=== PATIENT | female | born 1940 | race Caucasian/White ===

== ENCOUNTER 2020-09-06 08:30 | Inpatient (IN) | payer MEDICARE ==
[2020-09-02 11:10] LABS: APPEARANCE,URINE Clear (CLEAR); BILIRUBIN,URINE Negative (NEGATIVE); COLOR,URINE Yellow (YELLOW); GLUCOSE, URINE (UA) Negative (NEGATIVE); KETONES,URINE Negative (NEGATIVE); LEUKOCYTE ESTERASE ,URINE Trace (NEGATIVE); NITRATE,URINE Negative (NEGATIVE); OCCULT BLOOD,URINE Negative (NEGATIVE); PROTEIN,URINE Negative (NEGATIVE); UROBILINOGEN,URINE 0.2 mg/dL (0.2-1.0)
[2020-09-02 11:12] LABS: BASOPHILS % (AUTO) 0.5 % (0.0-5.0); EOSINOPHILS % (AUTO) 3.1 % (0.0-8.0); HEMATOCRIT 36.9 % (36-48); MEAN CORPUSCULAR HEMOGLOBIN 29.1 pg (27.0-33.0); MEAN CORPUSCULAR VOLUME 90.9 fL (79-99); MONOCYTES % (AUTO) 12.3 % (3.0-13.0); NEUTROPHILS % (AUTO) 52.8 % (40.0-77.0); PLATELET COUNT (AUTO) 237 K/uL (130-400); RED BLOOD CELL COUNT(AUTO) 4.06 MIL/uL (4.00-5.50); RED CELL DISTRIBUTION WIDTH 13.4 % (11.0-15.5); WHITE BLOOD COUNT (AUTO) 5.8 K/uL (4.8-10.8)
[2020-09-02 11:14] LABS: CREATININE 0.9 mg/dL (0.5-1.5); POTASSIUM 4.4 mmol/L (3.5-5.1)
[2020-09-02 11:18] LABS: BACTERIA,URINE Rare /HPF (None Seen); RBC,URINE None Seen /HPF (0-1); SQUAMOUS EPITHELIAL CELL,UR Rare /HPF (0-2)
[2020-09-02 11:38] LABS: INR 1.01 (0.85-1.15)
[2020-09-02 13:35] VITALS: BP 137/71
[2020-09-05] MEDS: CEFAZOLIN SODIUM 1 GM VIAL IVP SCH (06:00)
[~2020-09-06] VITALS: Ht 167.6 cm; Wt 73.1 kg
[2020-09-06] VITALS (25 sets, daily range): BP systolic 111–144; BP diastolic 49–75
[~2020-09-06 08:30] MED LIST: ASPI-1197 PO; CETI10CA5 PO; CYAN250014 PO; GENTAMICIN SULFATE 240 MG in 0.9%NACL 100ML 100 ML IV SCH; GLUC100019 PO; L.AC1CAP6 PO; LETR2.5T7 PO; LEVO50TA11 PO; LOSA100T58 PO; MULT-1296 PO; ROSU10TA28 PO; ZOLP5TAB2 PO; calcium PO
[2020-09-06] MEDS ORDERED: LACTATED RINGERS 1000ML 1,000 ML IV ONE (09:29)
[2020-09-06] MEDS ORDERED: SUCCINYLCHOLINE CHLORIDE 20 MG/ML 10 ML VIAL ONE (13:18)
[2020-09-06] MEDS ORDERED: LIDOCAINE PF 100MG/5ML (2%) SYRINGE 5ML ONE (13:18)
[2020-09-06] MEDS ORDERED: ROCURONIUM 10MG/1ML SYR 10 MG/ML ML ONE (13:19)
[2020-09-06] MEDS ORDERED: PROPOFOL 10 MG/ML 20ML VIAL IV ONE (13:19)
[2020-09-06] MEDS ORDERED: ONDANSETRON 4MG INJ ONE (13:19)
[2020-09-06] MEDS ORDERED: NEOSTIGMINE 5MG/5ML SYR IV ONE (13:19)
[2020-09-06] MEDS ORDERED: DEXAMETHASONE SOD PHOSPHATE 10MG/ML 1ML VIAL ONE (13:19)
[2020-09-06] MEDS ORDERED: GLYCOPYRROLATE 1 MG/5 ML SYRINGE ONE (13:19)
[2020-09-06] MEDS ORDERED: CEFAZOLIN SODIUM 1 GM VIAL ONE (13:23)
[2020-09-06] MEDS ORDERED: TRANEXAMIC ACID 1000MG/10ML ONE ×2 (13:24→16:39)
[2020-09-06] MEDS ORDERED: KETOROLAC 15MG/ML VIAL (15MG/ML) ONE (14:00)
[2020-09-06] MEDS ORDERED: ACETAMINOPHEN 500 MG TABLET ONE (14:00)
[2020-09-06] MEDS ORDERED: CELECOXIB 200 MG CAP ONE (14:00)
[2020-09-06] MEDS: CEFAZOLIN SODIUM 1 GM VIAL IVP SCH ×2 (14:26→20:40)
[2020-09-06] MEDS ORDERED: PHENYLEPHRINE HCL 10 MG/ML 1ML VIAL IV ONE (14:38)
[2020-09-06] MEDS ORDERED: EPHEDRINE SULFATE 50 MG/ML AMPULE ONE (14:52)
[2020-09-06] MEDS ORDERED: FENTANYL CITRATE PF 50 MCG/1 ML 2ML VIAL ONE ×2 (15:02→15:34)
[2020-09-06] MEDS ORDERED: CEFAZOLIN SODIUM 1 GM VIAL IRRIG ONE (15:07)
[2020-09-06] MEDS ORDERED: ONDANSETRON 4MG INJ IVP PRN (16:45)
[2020-09-06] MEDS ORDERED: KCL 20 MEQ ERTAB PO PRN (16:45)
[2020-09-06] MEDS ORDERED: LIDOCAINE HCL-MPF 1% 2ML VIAL IV PRN (16:45)
[2020-09-06] MEDS: ACETAMINOPHEN 500 MG TABLET PO SCH (16:45)
[2020-09-06] MEDS ORDERED: FERROUS FUMARATE 324 MG TABLET PO PRN (16:45)
[2020-09-06] MEDS ORDERED: OXYCODONE HCL 5 MG TAB PO PRN ×2 (16:45)
[2020-09-06] MEDS ORDERED: POTASSIUM CHLORIDE 10% ELIXIR 20 MEQ/15 ML UDCUP PO PRN (16:45)
[2020-09-06] MEDS ORDERED: TRAMADOL HCL 50 MG TABLET PO PRN (16:45)
[2020-09-06] MEDS ORDERED: KETOROLAC 15MG/ML VIAL (15MG/ML) IV PRN (16:45)
[2020-09-06] MEDS ORDERED: CALCIUM CARB 500MG PO PRN (16:45)
[2020-09-06] MEDS ORDERED: POTASSIUM CHLORIDE 20MEQ/100ML 100 ML IV PRN (16:45)
[2020-09-06] MEDS ORDERED: DiphenhydrAMINE HCL 50 MG/ML VIAL IVP PRN (16:45)
[2020-09-06] MEDS: 0.9%NACL 1000ML 1,000 ML IV SCH (16:45)
[2020-09-06] MEDS ORDERED: NON-FORMULARY MEDICATION 1 EACH (Cetirizine HCl (Zyrtec) 10 MG) PO SCH (18:15)
[2020-09-06] MEDS: ASPIRIN 81MG CHEW TAB PO SCH (20:29)
[2020-09-06] MEDS: ATORVASTATIN 20 MG TABLET PO SCH (20:30)
[2020-09-06] MEDS: CELECOXIB 200 MG CAP PO SCH (20:30)
[2020-09-06] MEDS: FAMOTIDINE 20MG TAB PO SCH (20:30)
[2020-09-06] MEDS: PREGABALIN 25 MG CAP PO SCH (20:30)
[2020-09-06] MEDS: LOSARTAN 100 MG TABLET PO SCH (20:30)
[2020-09-06] MEDS: ZOLPIDEM TARTRATE 5 MG TAB PO SCH (20:32)
[2020-09-06] MEDS ORDERED: NON-FORMULARY MEDICATION 1 EACH (Rosuvastatin Calcium 10 MG) PO SCH (21:00)
[2020-09-07] MEDS: ACETAMINOPHEN 500 MG TABLET PO SCH ×3 (00:01→16:46)
[2020-09-07] MEDS: 0.9%NACL 1000ML 1,000 ML IV SCH ×2 (02:36→12:13)
[2020-09-07 04:57] VITALS: BP 109/61
[2020-09-07 05:05] LABS: HEMATOCRIT 28.7 % (36-48); MEAN CORPUSCULAR HEMOGLOBIN 29.8 pg (27.0-33.0); MEAN CORPUSCULAR HGB CONC 33.8 g/dL (32.0-36.0); MEAN CORPUSCULAR VOLUME 88.3 fL (79-99); RED BLOOD CELL COUNT(AUTO) 3.25 MIL/uL (4.00-5.50); WHITE BLOOD COUNT (AUTO) 9.7 K/uL (4.8-10.8)
[2020-09-07 05:23] LABS: POTASSIUM 4.8 mmol/L (3.5-5.1)
[2020-09-07] MEDS: CEFAZOLIN SODIUM 1 GM VIAL IVP SCH (05:39)
[2020-09-07] MEDS: LEVOTHYROXINE 50 MCG TABLET PO SCH (05:39)
[2020-09-07 08:02] VITALS: BP 107/59
[2020-09-07] MEDS ORDERED: NON-FORMULARY MEDICATION 1 EACH (Cyanocobalamin (Vitamin B-12) (Vitamin B12) 2,500 MCG) PO SCH (09:00)
[2020-09-07] MEDS: Letrozole 2.5 MG PO SCH (09:00)
[2020-09-07] MEDS ORDERED: CALCIUM PO SCH (09:00)
[2020-09-07] MEDS ORDERED: LETROZOLE 2.5 MG PO SCH (09:00)
[2020-09-07] MEDS: POLYETHYLENE GLYCOL 3350 17 GM POWD.PACK PO SCH (09:22)
[2020-09-07] MEDS: ASPIRIN 81MG CHEW TAB PO SCH ×2 (09:22→20:31)
[2020-09-07] MEDS: CETIRIZINE HCL 5 MG TABLET PO SCH (09:22)
[2020-09-07] MEDS: PREGABALIN 25 MG CAP PO SCH ×2 (09:22→20:32)
[2020-09-07] MEDS: CALCIUM CARB 500MG PO SCH (09:24)
[2020-09-07] MEDS: CYANOCOBALAMIN (VITAMIN B-12) 1,000 MCG TABLET PO SCH (09:24)
[2020-09-07] MEDS: CELECOXIB 200 MG CAP PO SCH ×2 (09:26→20:31)
[2020-09-07 11:02] VITALS: BP 106/50
[2020-09-07 16:17] VITALS: BP 127/65
[2020-09-07 20:15] VITALS: BP 127/64
[2020-09-07] MEDS: FAMOTIDINE 20MG TAB PO SCH (20:31)
[2020-09-07] MEDS: ATORVASTATIN 20 MG TABLET PO SCH (20:31)
[2020-09-07] MEDS: ZOLPIDEM TARTRATE 5 MG TAB PO SCH (20:31)
[2020-09-07] MEDS: LOSARTAN 100 MG TABLET PO SCH (20:31)
[2020-09-08 00:03] VITALS: BP 122/63
[2020-09-08] MEDS: ACETAMINOPHEN 500 MG TABLET PO SCH ×2 (00:36→11:44)
[2020-09-08 04:31] VITALS: BP 124/66
[2020-09-08] MEDS: LEVOTHYROXINE 50 MCG TABLET PO SCH (06:46)
[2020-09-08] MEDS: POLYETHYLENE GLYCOL 3350 17 GM POWD.PACK PO SCH (07:48)
[2020-09-08] MEDS: CETIRIZINE HCL 5 MG TABLET PO SCH (07:49)
[2020-09-08] MEDS: CELECOXIB 200 MG CAP PO SCH (07:49)
[2020-09-08] MEDS: PREGABALIN 25 MG CAP PO SCH (07:49)
[2020-09-08] MEDS: ASPIRIN 81MG CHEW TAB PO SCH (07:49)
[2020-09-08] MEDS: CALCIUM CARB 500MG PO SCH (07:50)
[2020-09-08] MEDS: CYANOCOBALAMIN (VITAMIN B-12) 1,000 MCG TABLET PO SCH (07:51)
[2020-09-08] MEDS: Letrozole 2.5 MG PO SCH (07:52)
[2020-09-08 08:06] VITALS: BP 140/65
[2020-09-08] MEDS ORDERED: HYDR-4060 PO (10:12)
[2020-09-08] MEDS ORDERED: ASPI-1197 PO (10:12)
[2020-09-08 11:40] VITALS: BP 122/64
[2020-09-09] MEDS ORDERED: BISACODYL 10 MG SUPP.RECT RC PRN (16:45)
== END 2020-09-08 14:00 | disposition home health service (06) | DRG 470 ==
LOC: DAHIP 08:30 → 3AH 18:12
PROVIDERS: ADMIT Orthopaedic Surgery; ATTEND Orthopaedic Surgery
PROC: 3E0T3BZ Introduction of Anesthetic Agent into Peripheral Nerves and Plexi, Percutaneous Approach (ICD-10-PCS; 2020-09-06)
PROC: 0SRC0J9 Replacement of Right Knee Joint with Synthetic Substitute, Cemented, Open Approach (ICD-10-PCS; principal; 2020-09-06 14:10)
DX: M17.11 Unilateral primary osteoarthritis, right knee (principal); E78.00 Pure hypercholesterolemia, unspecified; G89.29 Other chronic pain; Z20.822 Contact with and (suspected) exposure to COVID-19; Z96.652 Presence of left artificial knee joint; K21.9 Gastro-esophageal reflux disease without esophagitis; I10 Essential (primary) hypertension; D64.9 Anemia, unspecified; Z90.710 Acquired absence of both cervix and uterus; Z85.3 Personal history of malignant neoplasm of breast; Z90.13 Acquired absence of bilateral breasts and nipples; Z82.49 Family history of ischemic heart disease and other diseases of the circulatory system; Z88.1 Allergy status to other antibiotic agents
CPT/HCPCS: 36415; 80048; 81001; 85025; 85027; 85610; 87088; 87641; 88305; 88311; 93005; 97039; G0378; J0330; J0690; J1100; J1580; J1885; J2001; J2370; J2405; J2704; J2710; J3010; J3490; J7120; U0003

== ENCOUNTER → 2023-07-04 | Outpatient (CLI) | payer MEDICARE ==
[~2023-07-04] MED LIST changes: -GENTAMICIN SULFATE 240 MG in 0.9%NACL 100ML 100 ML IV SCH; +HYDR-4060 PO; +IOHEXOL 350 MG/ML 100ML INFUS..BTL IV ONE; -LOSA100T58 PO; +LOSA100T59 PO; +METOPROLOL TARTRATE 1 MG/ML 5ML VIAL IV ONE
== END | disposition home or self-care (01) ==
LOC: RAH 07:39
PROVIDERS: ATTEND Student in an Organized Health Care Education/Training Program
DX: R07.9 Chest pain, unspecified (principal)
CPT/HCPCS: 75574; J3490; Q9967